=== PATIENT | male | born 1990 | race Caucasian/White ===

== ENCOUNTER 2019-03-05 20:11 | Emergency (ER) | payer BC ==
[~2019-03-05] VITALS: Ht 188 cm; Wt 124.7 kg
[2019-03-05] MEDS ORDERED: KETOROLAC TROMETH 60MG/2ML VIAL IM ONE (22:45)
[2019-03-05 23:02] VITALS: BP 141/72
== END 2019-03-05 23:48 | disposition home or self-care (01) ==
LOC: EDSEX → ER 20:22
DX: S02.5XXA Fracture of tooth (traumatic), initial encounter for closed fracture (principal); K04.7 Periapical abscess without sinus; X58.XXXA Exposure to other specified factors, initial encounter; Y93.9 Activity, unspecified; Y92.89 Other specified places as the place of occurrence of the external cause; Y99.8 Other external cause status
CPT/HCPCS: 96372; 99283; J1885

== ENCOUNTER 2019-03-06 08:53 | Emergency (ER) | payer BC ==
[~2019-03-06] VITALS: Ht 188 cm; Wt 124.7 kg
[2019-03-06 12:28] VITALS: BP 122/76
== END 2019-03-06 12:36 | disposition home or self-care (01) ==
LOC: ER 08:53 → EDSEX 08:53 → ER 12:36
DX: K02.9 Dental caries, unspecified (principal); Z88.6 Allergy status to analgesic agent